=== PATIENT | male | born 2000 | race Caucasian/White ===

== ENCOUNTER 2022-04-27 18:54 | Emergency (ER) | payer MEDICAID ==
[2022-04-27] MEDS ORDERED: Lidocaine 1% PF 2 ML SDV INJECT ONE (19:27)
[2022-04-27] MEDS ORDERED: Diphtheria,Pertussis(Acell),Tetanus Vaccine 0.5 ML Syringe IM ONE (19:27)
== END 2022-04-27 21:11 | disposition home or self-care (01) ==
LOC: MW.ED 18:54
DX: S61.313A Laceration without foreign body of left middle finger with damage to nail, initial encounter (principal); Z88.0 Allergy status to penicillin; Z88.1 Allergy status to other antibiotic agents; Z23 Encounter for immunization; W27.0XXA Contact with workbench tool, initial encounter
CPT/HCPCS: 12001; 73140-26-F2; 73140-F2; 90471; 90715; 99282; 99283-25; J3490

== ENCOUNTER 2022-11-24 21:37 | Emergency (ER) | payer MEDICAID | END 2022-11-24 22:52 | disposition left against medical advice (07) | LOC: MW.ED 21:37 | DX: Z53.21 Procedure and treatment not carried out due to patient leaving prior to being seen by health care provider (principal) ==

== ENCOUNTER 2024-09-09 21:22 | Emergency (ER) | payer SELFPAY | END 2024-09-09 22:15 | disposition home or self-care (01) | LOC: MW.ED 21:22 | DX: N50.89 Other specified disorders of the male genital organs (principal); Z88.0 Allergy status to penicillin; Z88.1 Allergy status to other antibiotic agents; Z79.899 Other long term (current) drug therapy | CPT/HCPCS: 99283 ==